=== PATIENT | female | born 1945 | race Caucasian/White ===

== ENCOUNTER 2023-05-28 12:54 | Emergency (ER) | payer BC ==
[2023-05-28 13:16] VITALS: BP 128/85; PULSE 75; RESP 18; TEMP 97.8; BMI 24.2
[2023-05-28 18:05] LABS: THROAT:GRP A STREP NOT DETECTED (NOTDETECTED)
== END 2023-05-28 14:31 | disposition home or self-care (01) ==
LOC: FER 12:54
DX: R05.9 Cough, unspecified (principal); R68.83 Chills (without fever); B34.9 Viral infection, unspecified; R09.81 Nasal congestion; M79.10 Myalgia, unspecified site; Z20.822 Contact with and (suspected) exposure to COVID-19
CPT/HCPCS: 0241U-QW; 71046-TC-FY; 87651; 99284-25